=== PATIENT | female | born 1950 | race African-American/Black ===

== ENCOUNTER → 2018-10-04 | Outpatient (CLI) | payer BC ==
--- NOTE | 2018-10-04 15:50 | PCVCIMAG ---
APPROVED REPORT Study performed: 10/04/2018 13:55:27 EXAM: Comprehensive 2D, Doppler, and color-flow Echocardiogram Patient Location: Echo lab Status: routine BSA: 1.66 HR: 88 bpmBP: 118/80 mmHg Rhythm: Tachycardia Other Information Study Quality: Good Risk Factors: Cardiac Risk Factors: HTN, Hyperlipidemia, DM Indications Cardiomyopathy Hypertension/HDD CVA 2D Dimensions IVSd: 6.28 (7-11mm)LVOT Diam: 17.47 (18-24mm) LVDd: 65.36 mm PWd: 9.58 (7-11mm)Ascending Ao: 29.77 (22-36mm) LVDs: 56.83 (25-40mm) Left Atrium: 36.06 (27-40mm) Aortic Root: 27.41 mm LV Single Plane 4CH: 10.37 % LV Single Plane 2CH: 11.93 % Biplane EF: 12.9 % Volumes Left Atrial Volume (Systole) Single Plane 4CH: 33.36 mLSingle Plane 2CH: 42.11 mL LA ESV Index: 23.00 mL/m2 Aortic Valve AoV Peak Luis A.: 1.38 m/s AO Peak Gr.: 7.60 mmHgLVOT Max P.62 mmHg LVOT Max V: 0.81 m/s WARREN Vmax: 1.41 cm2 Pulmonary Valve PV Peak Gr.: 0.98 mmHg Tricuspid Valve TR Peak Luis A.: 3.72 m/s TR Peak Gr.: 55.34 mmHg Left Ventricle Left ventricle is dilated. Global hypokinesis. There is normal left ventricular wall thickness. Left ventricular systolic function is severely decreased. LVEF 20-25%. This study is not technically sufficient to allow evaluation of the LV diastolic function. Right Ventricle The right ventricle is normal size. The right ventricular systolic function is normal. Atria The left atrium size is normal. The right atrium size is normal. Aortic Valve The aortic valve is trileaftlet, mildly sclerotic No aortic regurgitation is present. There is no aortic valvular stenosis. Mitral Valve The mitral valve is normal in structure. Mild mitral regurgitation. No evidence of mitral valve stenosis. Tricuspid Valve The tricuspid valve is normal in structure. Trace tricuspid regurgitation. Pulmonary artery pressure is 60 mmHg. Pulmonic Valve The pulmonary valve is normal in structure. There is no pulmonic valvular regurgitation. Great Vessels The aortic root is normal in size. IVC is normal in size and collapses >50% with inspiration. Pericardium There is no pericardial effusion. <Conclusion> Left ventricular systolic function is severely decreased. Global hypokinesis. LVEF 20-25%. The aortic valve is trileaftlet, mildly sclerotic. No aortic regurgitation or stenosis The mitral valve is normal in structure. Mild mitral regurgitation. Trace tricuspid regurgitation. Pulmonary artery pressure is 60 mmHg. There is no pericardial effusion.
== END | disposition home or self-care (01) ==
LOC: PCVCIMAG 13:33
PROVIDERS: ATTEND Internal Medicine
DX: I05.1 Rheumatic mitral insufficiency (principal); I10 Essential (primary) hypertension; E78.5 Hyperlipidemia, unspecified; E11.9 Type 2 diabetes mellitus without complications; I42.9 Cardiomyopathy, unspecified; I63.9 Cerebral infarction, unspecified
CPT/HCPCS: 93306

== ENCOUNTER → 2019-02-19 | Outpatient (CLI) | payer BC ==
--- NOTE | 2019-02-19 15:24 | PCVCIMAG ---
APPROVED REPORT Study performed: 02/19/2019 13:43:17 EXAM: Comprehensive 2D, Doppler, and color-flow Echocardiogram Patient Location: Echo lab Status: routine BSA: 1.64 HR: 84 bpmBP: 140/90 mmHg Rhythm: LBBB, pacemaker Other Information Study Quality: Adequate Indications Congestive Heart Failure Pacemaker LBBB, dilated cardiomyopathy 2D Dimensions IVSd: 8.63 (7-11mm) LVDd: 65.17 mm PWd: 8.91 (7-11mm)Ascending Ao: 33.31 (22-36mm) LVDs: 57.75 (25-40mm) Left Atrium: 44.55 (27-40mm) Aortic Root: 30.09 mm LV Single Plane 4CH: 16.68 % LV Single Plane 2CH: 12.78 % Volumes Left Atrial Volume (Systole) Single Plane 4CH: 63.28 mLSingle Plane 2CH: 78.95 mL LA ESV Index: 43.00 mL/m2 Aortic Valve AoV Peak Luis A.: 1.23 m/s AO Peak Gr.: 6.01 mmHgLVOT Max P.33 mmHg LVOT Max V: 0.58 m/s Mitral Valve MV Peak Gr.: 11.70 mmHg MV Mean Gr.: 4.40 mmHgE/A Ratio: 0.5 MV Decel. Time: 215.85 ms MV E Max Luis A.: 0.86 m/s MV A Luis A.: 1.67 m/s MV Max Luis A.: 1.71 m/s MV Mean Luis A.: 0.95 m/s MV VTI: 324.09 mm MV PHT: 61.96 ms MVA (PHT): 3.55 cm2 IVRT: 134.95 ms Pulmonary Valve PV Peak Luis A.: 0.68 m/sPV Peak Gr.: 1.86 mmHg Tricuspid Valve TR Peak Luis A.: 3.02 m/s TR Peak Gr.: 36.62 mmHg Left Ventricle Left ventricle is dilated. There is global hypokinesis of the left ventricle. There is normal left ventricular wall thickness. Left ventricular ejection fraction is severely decreased globally. LVEF is 15-20%. Grade I - abnormal relaxation pattern. Right Ventricle The right ventricle is normal size. The right ventricular systolic function is normal. Pacemaker lead is present in the right ventricle. Atria Left atrium is moderately dilated. The right atrium size is normal. Pacemaker lead is present in the right atrium. Aortic Valve The aortic valve is normal in structure. No aortic regurgitation is present. There is no aortic valvular stenosis. Mitral Valve The mitral valve is normal in structure. Mild mitral regurgitation. No evidence of mitral valve stenosis. Tricuspid Valve The tricuspid valve is normal in structure. Mild to moderate tricuspid regurgitation with PAP of 44 mmHg. Pulmonic Valve The pulmonary valve is normal in structure. There is no pulmonic valvular regurgitation. Great Vessels The aortic root is normal in size. IVC is normal in size and collapses >50% with inspiration. Pericardium There is no pericardial effusion. There is no pleural effusion. <Conclusion> Left ventricular ejection fraction is severely decreased globally. There is global hypokinesis of the left ventricle. LVEF is 15-20%. Mild diastolic dysfunction Left atrium is moderately dilated. The aortic valve is normal in structure. No aortic regurgitation or stenosis The mitral valve is normal in structure. Mild mitral regurgitation. Mild to moderate tricuspid regurgitation with pulmonary artery pressure of 44 mmHg. There is no pericardial effusion.
== END | disposition home or self-care (01) ==
LOC: PCVCIMAG 13:39
PROVIDERS: ATTEND Internal Medicine
DX: I11.0 Hypertensive heart disease with heart failure (principal); I50.22 Chronic systolic (congestive) heart failure; I44.7 Left bundle-branch block, unspecified; I08.1 Rheumatic disorders of both mitral and tricuspid valves; Z95.810 Presence of automatic (implantable) cardiac defibrillator
CPT/HCPCS: 93306

== ENCOUNTER → 2019-04-02 | Outpatient (CLI) | payer BC | END | disposition home or self-care (01) | LOC: PCVCCLINIC 11:00 | PROVIDERS: ATTEND Internal Medicine | DX: I42.0 Dilated cardiomyopathy (principal); I11.0 Hypertensive heart disease with heart failure; I50.22 Chronic systolic (congestive) heart failure; E78.5 Hyperlipidemia, unspecified; E11.9 Type 2 diabetes mellitus without complications; I44.7 Left bundle-branch block, unspecified; Z95.810 Presence of automatic (implantable) cardiac defibrillator; Z79.82 Long term (current) use of aspirin; Z88.8 Allergy status to other drugs, medicaments and biological substances | CPT/HCPCS: 93005; G0463 ==

== ENCOUNTER → 2019-08-02 | Outpatient (CLI) | payer BC | END | disposition home or self-care (01) | LOC: PCVCCLINIC 14:40 | PROVIDERS: ATTEND Internal Medicine | DX: I42.0 Dilated cardiomyopathy (principal); I11.0 Hypertensive heart disease with heart failure; I50.22 Chronic systolic (congestive) heart failure; E78.5 Hyperlipidemia, unspecified; E11.9 Type 2 diabetes mellitus without complications; I44.7 Left bundle-branch block, unspecified; Z95.810 Presence of automatic (implantable) cardiac defibrillator; Z88.0 Allergy status to penicillin; Z88.8 Allergy status to other drugs, medicaments and biological substances; Z91.040 Latex allergy status; Z79.4 Long term (current) use of insulin; Z79.899 Other long term (current) drug therapy | CPT/HCPCS: 36415; 80061; 93005; G0463 ==